=== PATIENT | male | born 1985 | race Caucasian/White ===

== ENCOUNTER 2019-11-14 16:04 | Emergency (ER) | payer SELFPAY ==
--- NOTE | 2019-11-14 16:21 | ED.WOUNDLAC ---
HPI - Wound/Laceration General Chief Complaint: Wound/Laceration Stated Complaint: lump on arm Time Seen by Provider: 11/14/19 16:21 Source: patient and RN notes reviewed Mode of arrival: ambulatory Limitations: no limitations History of Present Illness Onset (ago): week(s) (1) Extremity Location: Left: forearm Associated symptoms: pain Related Data Home Medications Medication Instructions Recorded Confirmed No Home Medications 11/14/19 11/14/19 Allergies Allergy/AdvReac Type Severity Reaction Status Date / Time No Known Allergies Allergy Verified 11/14/19 16:38 Review of Systems Review of Systems: All systems reviewed & are unremarkable except as noted in HPI and below Constitutional: Constitutional: Denies chills and Denies fever(s) PMFSH Past Medical History Medical History (Updated 11/14/19 @ 16:51 by David Najera MD) Drug abuse Surgical History Surgical History (Updated 11/14/19 @ 16:47 by David Najera MD) H/O knee surgery Hx of inguinal hernia repair Social History Social History (Updated 11/14/19 @ 16:47 by David Najera MD) Smoking packs per day: 0.5 Smoking cigarettes per day: 10.0 Smoking status: Current every day smoker Alcohol intake: current Alcohol use details: occasional Substance use: current Substance use type: heroin and opiates Exam Const: General: healthy appearing, no acute distress and alert Nutritional Appearance: well nourished Orientation/consciousness: patient oriented x3 HENMT: Head: normal to inspection Face and sinus: normal facial exam Eyes: Conjunctivae: conjunctivae normal Pupils: Equal, round and reactive pupils present EOM: EOMs intact bilaterally Neck: Neck: normal visual inspection and no lymphadenopathy Resp: Effort & Inspection: normal respiratory effort Auscultation: clear to auscultation bilaterally Cardio: Rate: regular rate Rhythm: regular rhythm GI: GI Palp: Yes Soft to palpation Skin: General skin exam: erythema, fluctuance ( Left forearm proximal aspect 3 cm in diameter.) and induration Course Vital Signs Vital signs: Vital Signs Temperature 36.9 C 11/14/19 16:39 Pulse Rate 110 H 11/14/19 16:39 Respiratory Rate 14 11/14/19 16:39 Blood Pressure 126/81 11/14/19 16:39 Pulse Oximetry 99 04/21/20 16:39 Temperature 36.9 C 11/14/19 16:39 Pulse Rate 110 H 11/14/19 16:39 Respiratory Rate 15 11/14/19 16:57 Blood Pressure 126/81 11/14/19 16:39 Pulse Oximetry 99 11/14/19 16:39 Procedures Abscess I/D upper extremity: Date of Incision: 11/14/19 Time of Incision: 16:41 Local Anesthetic: lidocaine 1% and with epi Technique: incised with #11 blade and probed loculations Irrigation: No Packing used?: none I&D Results: Pus and Blood Discharge Plan Discharge Clinical Impression: Abscess Patient Disposition: Home, Self-Care Condition: Stable Instructions: Abscess (ED) Additional Instructions: patient given instructions any worsening symptoms significant drainage from the wound he should return to the hospital immediately. Any red streaking return to the hospital. Any fever chills associated with the abscess return to the hospital. Use Tylenol or Motrin as needed for pain. Prescriptions: No Action No Home Medications RF: 0 Interventions: Discharge Disposition Last Done: 11/14/19 16:57 Follow-up/Referrals: UNKNOWN,DOCTOR [Primary Care Provider] - Time of Disposition: 16:51 Discharge Date/Time: 11/14/19 16:59
[2019-11-14 16:39] VITALS: BP 126/81; PULSE 110; RESP 14; TEMP 36.9; O2SAT 99
[2019-11-14] MEDS: LIDO 1%/EPINEPHRINE 1:100,000 20 ML VIAL 10 ML INFILTRATE (16:50)
[2019-11-14 16:57] VITALS: RESP 15
== END 2019-11-14 16:59 | disposition home or self-care (01) ==
PROVIDERS: Emergency Provider Emergency Medicine
DX: L02.414 Cutaneous abscess of left upper limb (principal)
CPT/HCPCS: 10060; 87070; 87205; 99282

== ENCOUNTER 2019-11-14 22:15 | Emergency (ER) | payer SELFPAY ==
[2019-11-14 22:15] VITALS: BP 120/96; PULSE 90; RESP 16; TEMP 36.5; O2SAT 96
--- NOTE | 2019-11-14 22:23 | ED.OVERDOSE ---
HPI - Overdose General Chief Complaint: Overdose Stated Complaint: AMB Time Seen by Provider: 11/14/19 22:23 Source: patient and EMS Mode of arrival: EMS Limitations: no limitations History of Present Illness HPI Narrative: patient arrived after being unresponsive at home. He was given 1 Narcan in the field by police radio dispatcher and then giving 4 mg by EMS. On arrival he is completely responsive and talking he refuses to be evaluated he tells the nurse he wants to leave any signs AMA papers. Patient left prior to being evaluated by myself. Related Data Home Medications Medication Instructions Recorded Confirmed No Home Medications 11/14/19 11/14/19 Allergies Allergy/AdvReac Type Severity Reaction Status Date / Time No Known Allergies Allergy Verified 11/14/19 16:38 PMF Past Medical History Medical History (Updated 11/14/19 @ 22:31 by David Najera MD) Drug abuse Surgical History Surgical History (Updated 11/14/19 @ 16:47 by David Najera MD) H/O knee surgery Hx of inguinal hernia repair Social History Social History (Updated 11/14/19 @ 16:47 by David Najera MD) Smoking packs per day: 0.5 Smoking cigarettes per day: 10.0 Smoking status: Current every day smoker Alcohol intake: current Substance use: current Substance use type: heroin and opiates Discharge Plan Discharge Clinical Impression: Drug overdose Qualifiers: Encounter type: initial encounter Injury intent: accidental or unintentional Qualified Code(s): T50.901A - Poisoning by unspecified drugs, medicaments and biological substances, accidental (unintentional), initial encounter Patient Disposition: Left Without Being Sn Triaged Condition: Stable Prescriptions: No Action No Home Medications RF: 0 Follow-up/Referrals: UNKNOWN,DOCTOR [Primary Care Provider] - Time of Disposition: 22:31
== END 2019-11-14 22:30 | disposition left against medical advice (07) ==
PROVIDERS: Emergency Provider Emergency Medicine
DX: Z53.8 Procedure and treatment not carried out for other reasons (principal)
CPT/HCPCS: 99199

== ENCOUNTER 2019-12-12 14:22 | Emergency (ER) | payer SELFPAY ==
[2019-12-12 14:24] VITALS: BP 116/83; PULSE 111; RESP 16; O2SAT 100
--- NOTE | 2019-12-12 14:28 | ED.OVERDOSE ---
HPI - Overdose General Chief Complaint: Overdose Stated Complaint: ambulance Source: patient Mode of arrival: EMS Limitations: no limitations History of Present Illness HPI Narrative: This 34-year-old known opioid addict snorted fentanyl with a group of others who witnessed him became unconscious and contacted EMS. On scene he was unresponsive and cyanotic; total of 8 mg of Narcan was given before becoming awake and talking. An interosseous tibial catheter was inserted. Ambulance personnel states he had overdosed within the last week but refused hospital transport. He states he injects and snorts opiods. Related Data Home Medications Medication Instructions Recorded Confirmed No Home Medications 11/14/19 12/12/19 Allergies Allergy/AdvReac Type Severity Reaction Status Date / Time No Known Allergies Allergy Verified 11/14/19 16:38 Review of Systems Constitutional: Constitutional: Denies chills and Denies fever(s) ENT: Denies nasal congestion and Denies sore throat Cardiovascular: Cardiovascular: Denies chest pain Respiratory: Respiratory: Denies dyspnea and Denies wheezing Gastrointestinal: Gastrointestinal: Denies abdominal pain Genitourinary: Genitourinary: Denies dysuria Musculoskeletal: Musculoskeletal: Denies arthralgias and Denies joint swelling Integumentary/Breasts: Skin/Breast: Denies rash PMFSH Past Medical History Medical History (Updated 12/12/19 @ 17:19 by Xavi Santos MD) Drug abuse Surgical History Surgical History (Updated 11/14/19 @ 16:47 by David Najera MD) H/O knee surgery Hx of inguinal hernia repair Social History Social History (Updated 11/14/19 @ 16:47 by David Najera MD) Smoking packs per day: 0.5 Smoking cigarettes per day: 10.0 Smoking status: Current every day smoker Alcohol intake: current Substance use: current Substance use type: heroin and opiates Exam Const: General: alert Orientation/consciousness: patient oriented x3 HENMT: Face and sinus: normal facial exam Mouth: Yes moist mucous membranes Eyes: Other: EOMI Neck: Neck: no lymphadenopathy Chest: Chest palpation & inspection: normal inspection of the chest Resp: Auscultation: clear to auscultation bilaterally Cardio: Rate: regular rate Rhythm: regular rhythm GI: GI Palp: Yes Soft to palpation and No Tenderness to palpation present (GI) Back/Spine/Pelvis: Back: no CVA tenderness Skin: General skin exam: normal color Rashes: no rashes Extrem: Knee images: 1. Intraosseous catheter Course Course Emergency Course: Patient cooperative on arrival, alert and lucid. Agreed to wait for 30 min before being discharged. At about 30 minutes pt's I.O. was removed. Patient walked out AMA without being given instructions. Vital Signs Vital signs: Vital Signs Pulse Rate 111 H 12/12/19 14:24 Respiratory Rate 16 12/12/19 14:24 Blood Pressure 116/83 12/12/19 14:24 Pulse Oximetry 100 12/12/19 14:24 Pulse Rate 111 H 12/12/19 14:24 Respiratory Rate 22 H 12/12/19 14:30 Blood Pressure 110/72 12/12/19 15:19 Pulse Oximetry 100 12/12/19 14:24 MDM - Overdose MDM Narrative Medical decision making narrative: Hx of fentanyl ingestion, apnea, resolution with Narcan all c/w fentanyl overdose. Discharge Plan Discharge Clinical Impression: Opioid overdose Patient Disposition: Left Against Medical Advice Condition: Guarded Prognosis Prescriptions: No Action No Home Medications RF: 0 Interventions: Discharge Disposition Last Done: 12/12/19 15:19 Follow-up/Referrals: UNKNOWN,DOCTOR [Primary Care Provider] - Time of Disposition: 15:15 Discharge Date/Time: 12/12/19 15:21
[2019-12-12 14:30] VITALS: RESP 22
--- NOTE | 2019-12-12 15:04 | PC.NURSE ---
IO REMOVED - PT REMAINS ALERT AND ORIENTED
--- NOTE | 2019-12-12 15:15 | PC.NURSE ---
PT IS GIVEN RESOURCES TO OUTPATIENT DRUG REHABILITATION
[2019-12-12 15:19] VITALS: BP 110/72
== END 2019-12-12 15:21 | disposition left against medical advice (07) ==
PROVIDERS: Emergency Provider Family Medicine
DX: T40.2X1A Poisoning by other opioids, accidental (unintentional), initial encounter (principal)
CPT/HCPCS: 99281; 99282